=== PATIENT | female | born 1955 | race Caucasian/White ===

== ENCOUNTER 2025-02-08 07:11 | Day surgery (SDC) | payer OTHER ==
[2025-02-05 12:00] VITALS: BMI 23.0
[2025-02-08] MEDS ORDERED: TRIAMCINOLONE ACET 40MG/1ML VIAL ONE (07:14)
[2025-02-08] MEDS ORDERED: BUPIVACAINE HCL/PF 0.5% (5MG/ML) 10 ML VIAL ONE (07:14)
[2025-02-08] MEDS ORDERED: LIDOCAINE HCL/PF 1% SDV 5ML VIAL ONE (07:14)
[2025-02-08 10:51] VITALS: BP 117/77; PULSE 83; RESP 20; TEMP 98.2
[2025-02-08] MEDS ORDERED: ACETAMINOPHEN 500 MG TABLET (FP) PO PRN (12:32)
== END 2025-02-08 12:30 | disposition home or self-care (01) ==
LOC: JASU-SURG 07:11
PROVIDERS: ATTEND Pain Medicine Pain Medicine
DX: Z53.8 Procedure and treatment not carried out for other reasons (principal)

== ENCOUNTER 2025-02-15 06:54 | Day surgery (SDC) | payer OTHER ==
[2025-02-13 16:52] VITALS: BMI 22.4
[2025-02-15] MEDS: BUPIVACAINE HCL/PF 0.75% 10 ML VIAL NR ONE
[2025-02-15] MEDS ORDERED: BUPIVACAINE HCL/PF 0.75% 10 ML VIAL ONE (07:33)
[2025-02-15] MEDS ORDERED: LIDOCAINE HCL/PF 1% SDV 5ML VIAL ONE (07:33)
[2025-02-15] MEDS ORDERED: ACETAMINOPHEN 500 MG TABLET (FP) PO PRN (09:20)
[2025-02-15] MEDS: LIDOCAINE HCL 1% PRESERVATIVE FREE - 30ML VIAL IJ ONE ×2 (11:55)
[2025-02-15 14:34] VITALS: BP 118/69; PULSE 79; RESP 20; TEMP 97.3
== END 2025-02-15 13:45 | disposition home or self-care (01) ==
LOC: JASU-SURG 06:54
PROVIDERS: ATTEND Pain Medicine Pain Medicine
PROC: 3E0T33Z Introduction of Anti-inflammatory into Peripheral Nerves and Plexi, Percutaneous Approach (ICD-10-PCS; 2025-02-15)
PROC: 3E0T3BZ Introduction of Anesthetic Agent into Peripheral Nerves and Plexi, Percutaneous Approach (ICD-10-PCS; principal; 2025-02-15 12:00)
DX: M47.816 Spondylosis without myelopathy or radiculopathy, lumbar region (principal)
CPT/HCPCS: 76000-TC-FY

== ENCOUNTER 2025-03-29 07:22 | Day surgery (SDC) | payer OTHER ==
[2025-03-27 17:04] VITALS: BMI 22.4
[2025-03-29 10:27] VITALS: BP 134/77; PULSE 75; RESP 18; TEMP 97.9
[2025-03-29] MEDS: BUPIVACAINE HCL/PF 0.75% 10 ML VIAL NR ONE ×3 (10:52)
[2025-03-29] MEDS: DEXAMETHASONE SOD PHOSPHATE 20 MG/5 ML VIAL IM ONE ×2 (10:52)
[2025-03-29] MEDS: LIDOCAINE HCL 1% PRESERVATIVE FREE - 30ML VIAL IJ ONE ×2 (10:52)
[2025-03-29] MEDS: LIDOCAINE HCL/PF 2% SDV 5ML VIAL INF ONE ×3 (10:52)
[2025-03-29] MEDS ORDERED: ACETAMINOPHEN 325 MG TABLET (FP) ONE (11:45)
[2025-03-29] MEDS: ACETAMINOPHEN 325 MG TABLET (FP) PO ONE (11:50)
== END 2025-03-29 12:46 | disposition home or self-care (01) ==
LOC: JASU-SURG 07:22
PROVIDERS: ATTEND Pain Medicine Pain Medicine
PROC: 015B3ZZ Destruction of Lumbar Nerve, Percutaneous Approach (ICD-10-PCS; principal; 2025-03-29 10:45)
DX: M47.816 Spondylosis without myelopathy or radiculopathy, lumbar region (principal)
CPT/HCPCS: 76000-TC-FY

== ENCOUNTER 2025-04-26 05:36 | Day surgery (SDC) | payer OTHER ==
[2025-04-26] MEDS ORDERED: ACETAMINOPHEN 500 MG TABLET (FP) PO PRN (08:46)
[2025-04-26] MEDS ORDERED: DEXAMETHASONE SOD PHOSPHATE 10 MG/1 ML VIAL ONE (09:00)
[2025-04-26 10:35] VITALS: RESP 16
[2025-04-26] MEDS: LIDOCAINE HCL 1% PRESERVATIVE FREE - 30ML VIAL IJ ONE (12:05)
[2025-04-26] MEDS: LIDOCAINE HCL/PF 2% SDV 5ML VIAL INF ONE (12:06)
[2025-04-26] MEDS: BUPIVACAINE HCL/PF 0.75% 10 ML VIAL NR ONE (12:07)
[2025-04-26] MEDS: DEXAMETHASONE SOD PHOSPHATE 10 MG/1 ML VIAL IM ONE (12:08)
[2025-04-26 12:39] VITALS: TEMP 97.8
[2025-04-26 15:11] VITALS: BP 118/70; PULSE 72
== END 2025-04-26 15:30 | disposition home or self-care (01) ==
LOC: JASU-SURG 05:36
PROVIDERS: ATTEND Pain Medicine Pain Medicine
PROC: 015B3ZZ Destruction of Lumbar Nerve, Percutaneous Approach (ICD-10-PCS; principal; 2025-04-26 12:15)
DX: M47.816 Spondylosis without myelopathy or radiculopathy, lumbar region (principal)
CPT/HCPCS: 76000-TC-FY; J1100